=== PATIENT | female | born 2000 | race Caucasian/White ===

== ENCOUNTER 2022-10-11 11:34 | Emergency (ER) | payer OTHER ==
[~2022-10-11] VITALS: Ht 175.3 cm; Wt 68.0 kg
== END 2022-10-11 15:17 | disposition home or self-care (01) ==
LOC: ER 11:34
DX: G47.00 Insomnia, unspecified (principal); Z88.2 Allergy status to sulfonamides

== ENCOUNTER → 2022-10-11 | Emergency (ER) | payer OTHER ==
[~2022-10-11] VITALS: Ht 175.3 cm; Wt 72.6 kg
== END | disposition home or self-care (01) ==
LOC: ER 17:23
DX: G47.00 Insomnia, unspecified (principal); Z88.8 Allergy status to other drugs, medicaments and biological substances